=== PATIENT | female | born 1965 | race Caucasian/White ===

== ENCOUNTER 2020-12-17 07:22 | Day surgery (SDC) | payer BC ==
[2020-12-17] MEDS ORDERED: Dextrose 5%-Lactated Ringers 1,000 ML IV SCH (08:00)
[2020-12-17] MEDS ORDERED: Propofol 200 MG/20 ML SDV ONE (08:29)
[2020-12-17] MEDS ORDERED: Midazolam 1 MG/ML 2 ML SDV ONE (08:29)
[2020-12-17] MEDS ORDERED: fentaNYL 100 MCG/2 ML SDV ONE (08:29)
[2020-12-17] MEDS ORDERED: Hydrocortisone Sodium Succinate 100 MG/2 ML SDV IVPUSH PRN (09:30)
[2020-12-17] MEDS ORDERED: Sodium Chloride 0.9% 1,000 ML IV SCH ×2 (09:30→10:42)
[2020-12-17] MEDS ORDERED: diphenhydrAMINE 50 MG/ML SDV IVPUSH PRN (09:30)
[2020-12-17] MEDS ORDERED: Famotidine 20 MG/2 ML SDV IVPUSH PRN (09:30)
[2020-12-17 11:41] VITALS: BP 129/77; PULSE 69
--- NOTE | 2020-12-22 01:05 | OR ---
DATE OF PROCEDURE: 12/17/2020 SURGEON: José Miguel Carrizales MD PREOPERATIVE DIAGNOSIS: History of Laguerre's esophagus. POSTOPERATIVE DIAGNOSIS: History of Laguerre esophagus. OPERATIVE PROCEDURE: Upper gastrointestinal endoscopy with biopsies of esophagogastric junction for surveillance of Laguerre's esophagus. INDICATIONS FOR PROCEDURE: A 55-year-old female presenting for followup upper endoscopy, status post Sony-en-Y gastric bypass. She still does have some reflux symptoms and is on omeprazole 20 mg b.i.d. With this, she has a little bit of breakthrough reflux at night, and was instructed that she take some Tums and medication such as that as needed. Otherwise, she is to undergo an upper endoscopy with biopsies of the area of the Laguerre's esophagus for followup surveillance. Potential risks including bleeding and perforation were discussed, and the patient wishes to proceed. DETAILS OF PROCEDURE: The patient was taken to the operating room, placed in a left lateral decubitus position. IV sedation was administered after which the upper GI endoscope was passed orally through the length of esophagus into the area of the gastrojejunostomy and gastric pouch and from there 20 cm into the Sony limb. Findings were otherwise unremarkable apart from there being a single tongue of columnar mucosa extending up above the gastric folds consistent with history of Laguerre's esophagus. There was no significant inflammation, stricturing, or other problems identified at this point. Multiple biopsies from that area were then obtained and sent for histologic evaluation. Minimal bleeding from the biopsy sites was seen, and the procedure was then concluded. Assuming that there is no progression of the Laguerre's esophagus towards dysplasia on today's biopsies, next upper endoscopy should be considered in roughly 2 years. We would otherwise continue with present medical management. The patient was noted to have a low ferritin level on recent lab testing and received 510 mg of IV iron today. The second iron infusion will be set up in [place] at her home clinic or hospital, and otherwise, she will be following up with Lavern Smith via virtual visit in roughly 3 months. José Miguel Carrizales MD /[id number]
== END 2020-12-17 11:55 | disposition home or self-care (01) ==
LOC: JP.SDS 07:22
PROVIDERS: ATTEND Surgery
DX: K20.90 Esophagitis, unspecified without bleeding (principal); K22.8 Other specified diseases of esophagus; E78.00 Pure hypercholesterolemia, unspecified; Z88.8 Allergy status to other drugs, medicaments and biological substances; Z91.09 Other allergy status, other than to drugs and biological substances; Z87.891 Personal history of nicotine dependence; Z98.84 Bariatric surgery status
CPT/HCPCS: 43239; 81025; 88305; J2250; J2704; J3010; J7030; J7121; Q0138